=== PATIENT | female | born 1930 | race Caucasian/White ===

== ENCOUNTER → 2017-02-25 | Outpatient (CLI) | payer MEDICARE, MEDICAID ==
--- NOTE | 2017-02-25 15:27 | ST Modified Barium Swallow ---
Recommendation - Recommendations Recommendations: Recommend GI consult due to reduced UES opening. Soft diet and thin liquids recommended as well. Medical Diagnoses - Medical Diagnoses Medical Diagnosis Description & ICD-10 Code(s): dysphagia, unspecified R13.10 Other Medical Diagnoses/Co-Morbidities: per patient: arthritis, vertigo, low blood pressure, IBS ST Modified Barium Swallow - General Date: 02/25/17 Referring Physician: Dr. Olvin Kumar Risks/Precautions: Falls Reason for Referral: Feels foods "get stuck" - History History obtained from: Patient - Patient reports sensation of getting "choked" with foods, gradually getting worse. Currently medications are taken broken up, and meats are ground. No history of stroke or injury to head/neck area. -: Medical Medications: Pt unable to recall. Allergies: Sulfa, no food allergies - Functional Status Prior Functional Status: INDEPENDENT: feeding - Able to consume regular diet without difficulty. Current Functional Limitations: feeding - Ground meats, cut pills - Subjective Patient/caregiver goal(s): r/o struct. abnormality Cognitive-Linguistic Function: WNL Speech Intelligibility: WNL Current Nutritional Means: PO Current PO diet: Mechanical- ground - with thin liquids Current symptoms: Coughing, c/o Globus sensation Pain: Patient reports, 0/5 - Objective Assessment: Upright, Left Lateral - Food Trials Used Food trials used: Thin liquids, Pureed, Regular The patient: Was Able to Self Feed - Oral-Motor Skills Dentition: Full Laryngeal Function: clear voicing - Assessment Oral prep: Normal Labial closure: Adequate Leakage: None Mastication: Adequate Lingual Movement: Normal Oral stage: Age appropriate - Pharyngeal Stage Initiation of Pharyngeal Stage Reflex: Delayed Reflex Delay Time (Seconds): 3 - for puree and solid Decreased laryngeal elevation: No Reduced Velopharyngeal Closure: no reduced tongue-based retraction: Yes Pre-swallow pooling in valleculae: Moderate - with puree and regular Reduced epiglottic excursion: No Reduced pharyngeal peristalsis/contraction: No Multiple Swallows with: Ineffective Clearance Post-swallow residulas vallecular: Moderate Post-Swallow residuals in pyriforms: Moderate Post-Swallow Residuals: throughout pharynx Reduced Cricopharyngeal opening: Yes Pharyngeal Stage Comments: Pharyngeal residue present, however, this was due to reduced cricopharyngeal opening, causing food and liquid to remain in pharynx after multiple swallows. Severely reduced UES functioning. - Fall Risk Assessment Medications/Conditions that increase fall risks include: Antidepressants, sedatives, anti-arrhythmic, diuretic, benzodiazipenes, neuroleptics. BP regulation problems, cardiac problems, balance or gait deficits, neurological problems. Is patient considered at risk for falls: yes Fall Risk Actions Taken: No action needed - Behavioral Observations Mental Status: Alert & Oriented X3 - Treatment / Educational Needs: Treatment/Education Needs: Treatment consisted of patient education on the role of the Speech Pathologist. Patient's plan of care and golas were communicated as well as scheduling and attendance policies. Recommendations for initial home program were shared. Patient demonstrated understanding and verbalized agreement. - Impression/Summary Laryngeal Penetration: Yes, after swallow - on residue after the swallow due to reduced UES opening Tracheal Aspiration: no Patient presents with: Esophageal stage dysph. Risk of Aspiration: Mild Risk of nutritional compromise: Mild Risk due to: Reduced UES opening and poor movement of material into esophagus. Evaluation and Findings: Good basic oral and pharyngeal swallow functioning, however, large amounts of residue seen in pharynx due to reduced cricopharyngeal opening, and inability of food to move into esophagus. Consider GI consult to address esophageal stage deficits. 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 - - -: Thank you for the opportunity to work with this patient and his/her family. Should you have any questions about this patient's plan or progress, I can be reached at [phone]. Charge G Code? - - -: Yes ST F.L. Impairment Category - Rationale Based On Rationale Based On: Clin Find., Obj Measures - Swallowing Current G8996: CK 40-59% Impaired Goal G8997: CK 40-59% Impaired Discharge G8998: CK 40-59% Impaired
--- NOTE | 2017-03-02 09:07 | RADIOLOGY REPORT (SQ) ---
EXAM DESCRIPTION: CHERYLE SWALLOW COMPLETED DATE/TIME: 02/25/2017 9:12 am REASON FOR STUDY: DYSPHAGIA, UNSPECIFIED R13.10 DYSPHAGIA, UNSPECIFIED COMPARISON: None. TECHNIQUE: Videofluoroscopic swallowing examination was performed in conjunction with speech patholo gy. Videofluoroscopic imaging was obtained and reviewed and these are the findings: RADIATION DOSE: 2 minutes 31 seconds of fluoroscopy was used. 2 images saved to PACS. LIMITATIONS: None FINDINGS: The patient was brought into the fluoro room and placed upright on a modified barium swall ow chair. The patient was then given multiple consistencies mixed with barium to swallow under live fluoroscopic video guidance. According to the Speech Pathologist there was trace laryngeal penetrati on is identified. No aspiration seen. Moderate post swallow residual contrast seen within the gross cular and piriform sinuses most likely caused by a moderate cricopharyngeal hypertrophy. IMPRESSION: TRACE LARYNGEAL PENETRATION WITH THIN LIQUIDS. NO ASPIRATION SEEN. MODERATE CRICOPHARY NGEAL HYPERTROPHY.PLEASE SEE SPEECH PATHOLOGIST REPORT FOR OTHER FINDINGS AND RECOMMENDATIONS. COMMENT: Quality ID [id number]: Final reports for procedures using fluoroscopy that document radiation exp osure indices, or exposure time and number of fluorographic images (if radiation exposure indices are not available) TECHNICAL DOCUMENTATION: JOB ID: [id number] [employer]- All Rights Reserved
== END ==
LOC: RAD 08:21
PROVIDERS: ATTEND Specialist
DX: R13.10 Dysphagia, unspecified (principal)
CPT/HCPCS: 74230; 92611; G8996; G8997; G8998

== ENCOUNTER → 2017-03-26 | Outpatient (CLI) | payer MEDICARE, MEDICAID ==
--- NOTE | 2017-03-26 13:25 | RADIOLOGY REPORT (SQ) ---
EXAM DESCRIPTION: BARIUM SWALLOW ESOPHAGUS COMPLETED DATE/TIME: 03/26/2017 9:17 am REASON FOR STUDY: DYSPHAGIA R13.10 DYSPHAGIA, UNSPECIFIED COMPARISON: Cookie swallow 02/25/2017 TECHNIQUE: Under fluoroscopic guidance, patient ingested effervescent granules followed by thick and thin barium. Fluoroscopic spot images and routine radiographic images acquired and stored on PACS. 12 MM BARIUM TABLET GIVEN: Patient politely refused the 12 mm barium tablet LIMITATIONS: None. FLUOROSCOPY TIME: 1 minutes 57 seconds 10 series of digital images saved to PACS. FINDINGS: No laryngeal penetration on today's study with thick liquid barium. In the uppermost esophagus, a mild persistent stricture is present seen on multiple views, at about t he level of C7-T1. This could be a peptic related stricture. The the remainder of the esophagus demonstrates prominent tertiary contractions and mild diffuse dysm otility. There is a small hiatal hernia without Schatzki's ring. Throughout the study, unprovoked gastroesophageal reflux to the cervical esophagus is seen. IMPRESSION: Small hiatal hernia with gastroesophageal reflux. 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
== END ==
LOC: RAD 08:18
PROVIDERS: ATTEND Specialist
DX: R13.10 Dysphagia, unspecified (principal); K21.9 Gastro-esophageal reflux disease without esophagitis; K44.9 Diaphragmatic hernia without obstruction or gangrene
CPT/HCPCS: 74220

== ENCOUNTER → 2017-05-31 | Outpatient (CLI) | payer MEDICARE, MEDICAID ==
--- NOTE | 2017-05-31 12:32 | WOMENS IMAGING REPORT ---
EXAM DESCRIPTION: BONE DENSITY HIP/SPINE COMPLETED DATE/TIME: 05/31/2017 11:52 am REASON FOR STUDY: AGE-RELATED OSTEOPROSIS; M81.0 M81.0 AGE-RELATED OSTEOPOROSIS W/O CURRENT PATHOLO GICAL FRAC COMPARISON: None. TECHNIQUE: Dual-Energy X-ray Absorptiometry (DEXA) of the AP Spine and Hip. LIMITATIONS: None. FINDINGS: LUMBAR SPINE: The bone mineral density (BMD) measured from L1-L4 in the AP projection correlates with a T-score of -1.1, which is osteopenia as defined by the World Health Organization. HIP: The bone mineral density (BMD) measured in the left hip correlates with a T-score of -1.8, which is o steopenia as defined by the World Health Organization. IMPRESSION: 1. LUMBAR SPINE: OSTEOPENIA. 2. HIP: OSTEOPENIA. COMMENT: The World Health Organization defines low BMD as follows: T-score: Normal: Greater than -1.0 Osteopenia: Between -1.0 and -2.5 Osteoporosis: Less than -2.5 without fractures Established osteoporosis: Less than -2.5 with fractures In general, you may wish to consider: Diagnosis Treatment Follow-up DEXA Normal BMD Prevention 2-3 years Osteopenia Prevention/Therapy 1-2 years Osteoporosis Therapy Yearly TECHNICAL DOCUMENTATION: JOB ID: [id number] [employer]- All Rights Reserved
== END ==
LOC: WI 10:00
PROVIDERS: ATTEND Internal Medicine Rheumatology
DX: M81.0 Age-related osteoporosis without current pathological fracture (principal)
CPT/HCPCS: 77080

== ENCOUNTER 2017-09-19 17:52 | Emergency (ER) | payer MEDICARE, MEDICAID ==
[2017-09-19 18:23] LABS: ABSOLUTE BASOPHILS # (AUTO) 0.1 10^3/uL (0.0-0.2); ABSOLUTE LYMPHOCYTES (AUTO) 2.1 10^3/uL (0.5-4.7); ABSOLUTE MONOCYTES (AUTO) 0.7 10^3/uL (0.1-1.4); ABSOLUTE NEUT (AUTO) 14.6 10^3/uL (1.7-8.2); BASOPHILS % (AUTO) 0.5 % (0-2); EOSINOPHILS % (AUTO) 0.1 % (0-6); HEMATOCRIT 40.3 % (36.0-47.0); HEMOGLOBIN 13.2 g/dL (12.0-15.5); LYMPHOCYTES % (AUTO) 11.9 % (13-45); MEAN CORPUSCULAR HEMOGLOBIN 33.1 pg (27.0-33.4); MEAN CORPUSCULAR HGB CONC 32.8 g/dL (32.0-36.0); MEAN CORPUSCULAR VOLUME 101 fl (80-97); MONOCYTES % (AUTO) 4.2 % (3-13); PLATELET COUNT 317 10^3/uL (150-450); RED BLOOD COUNT 3.99 10^6/uL (3.72-5.28); RED CELL DISTRIBUTION WIDTH 14.1 % (11.5-14.0); SEGMENTED NEUTROPHILS % (AUTO) 83.3 % (42-78); TOTAL CELLS COUNTED % (AUTO) 100 %; WHITE BLOOD COUNT 17.6 10^3/uL (4.0-10.5)
[2017-09-19 18:40] LABS: ALANINE AMINOTRANSFERASE 27 U/L (9-52); ALBUMIN 3.7 g/dL (3.5-5.0); ALKALINE PHOSPHATASE 49 U/L (38-126); ANION GAP 6 (5-19); ASPARTATE AMINO TRANSFERASE 28 U/L (14-36); BILIRUBIN,DIRECT 0.4 mg/dL (0.0-0.4); BILIRUBIN,TOTAL 0.6 mg/dL (0.2-1.3); BLOOD UREA NITROGEN 18 mg/dL (7-20); CALCIUM 10.1 mg/dL (8.4-10.2); CARBON DIOXIDE 29 mmol/L (22-30); CHLORIDE 101 mmol/L (98-107); GLUCOSE 113 mg/dL (75-110); POTASSIUM 4.8 mmol/L (3.6-5.0); SODIUM 135.8 mmol/L (137-145); TOTAL PROTEIN 6.3 g/dL (6.3-8.2)
[2017-09-19 19:30] LABS: CREATINE KINASE 30 U/L (30-135)
--- NOTE | 2017-09-19 19:36 | RADIOLOGY REPORT (SQ) ---
EXAM DESCRIPTION: CHEST SINGLE VIEW COMPLETED DATE/TIME: 09/19/2017 7:16 pm REASON FOR STUDY: cough COMPARISON: 07/02/2013 NUMBER OF VIEWS: One view. TECHNIQUE: Single frontal radiographic view of the chest acquired. LIMITATIONS: None. FINDINGS: LUNGS AND PLEURA: No opacities, masses or pneumothorax. No pleural effusion. Attenuated bl ood vessels and flattened mitul-diaphragms. MEDIASTINUM AND HILAR STRUCTURES: No masses. Contour normal. HEART AND VASCULAR STRUCTURES: Heart normal in size. Normal vasculature. BONES: No acute findings. HARDWARE: None in the chest. OTHER: No other significant finding. IMPRESSION: COPD. NO ACUTE RADIOGRAPHIC FINDING IN THE CHEST. TECHNICAL DOCUMENTATION: JOB ID: [id number] [employer]- All Rights Reserved Reading location - IP/workstation name: [email or web address]
[2017-09-19 19:42] LABS: CREATINE KINASE MB 2.21 ng/mL (<4.55); NT PRO BNP 2280 pg/mL (<450)
[2017-09-19 19:46] LABS: TROPONIN I < 0.012 ng/mL
--- NOTE | 2017-09-19 20:18 | EKG REPORT ---
SEVERITY:- ABNORMAL ECG - SINUS RHYTHM WITH PACS. LEFT BUNDLE BRANCH BLOCK : Confirmed by: Vince Mckeon MD 19-Sep-2017 20:17:47
[2017-09-19] MEDS ORDERED: NORMAL SALINE 500 ML IV ONE (20:42)
--- NOTE | 2017-09-19 21:03 | ER Document Report ---
ED General - General Chief Complaint: Cough Stated Complaint: COUGH Time Seen by Provider: 09/19/17 18:52 Mode of Arrival: Ambulatory Information source: Patient TRAVEL OUTSIDE OF THE [place] IN LAST 30 DAYS: No - HPI Patient complains to provider of: cough/congestion/ear drainage b/l Onset: Other - last night Associated symptoms: Nonproductive cough. denies: Body/muscle aches, Chest pain , Chills, Productive cough, Diarrhea, Drooling, Earache, Fever, Headache, Hurts to breath, Leg swelling, Nausea, Vomiting, Shortness of breath, Sore throat Notes: Patient states that she had drainage from both her ears yesterday she denies any pain. She is here for cough as well as congestion.Daughter states she had chest discomfort today although patient denies it. Patient is DNR. She has a history of left bundle branch block. - Related Data Allergies/Adverse Reactions: Sulfa (Sulfonamide Antibiotics) Allergy (Mild, Verified 12/04/11 13:56) unknown reaction many yrs ago Past Medical History - General Information source: Patient, Relative, [facility] Records - Social History Smoking Status: Never Smoker Chew tobacco use (# tins/day): No Frequency of alcohol use: None Drug Abuse: None Family History: Reviewed & Not Pertinent Patient has suicidal ideation: No Patient has homicidal ideation: No - Past Medical History Cardiac Medical History: Reports: Hx Atrial Fibrillation - with RVR, Hx Congestive Heart Failure, Other - LBBB Denies: Hx Coronary Artery Disease, Hx Heart Attack, Hx Hypertension Pulmonary Medical History: Reports: None Denies: Hx Asthma, Hx Bronchitis, Hx COPD, Hx Pneumonia EENT Medical History: Reports: None Neurological Medical History: Reports: None. Denies: Hx Cerebrovascular Accident, Hx Seizures Endocrine Medical History: Reports: None Renal/ Medical History: Reports: None. Denies: Hx Peritoneal Dialysis Malignancy Medical History: Reports: None GI Medical History: Reports: None. Denies: Hx Hepatitis, Hx Hiatal Hernia, Hx Ulcer Musculoskeltal Medical History: Reports Hx Arthritis Psychiatric Medical History: Denies: Hx Depression Traumatic Medical History: Reports: None Infectious Medical History: Denies: Hx Hepatitis Past Surgical History: Reports: Hx Hysterectomy. Denies: Hx Mastectomy, Hx Open Heart Surgery, Hx Pacemaker - Immunizations Hx Diphtheria, Pertussis, Tetanus Vaccination: Yes Hx Pneumococcal Vaccination: 07/19/09 Review of Systems - Review of Systems Constitutional: No symptoms reported EENT: Ear discharge, Nose congestion, Other - hard of hearing (saeid states this has been ongoing for years) Cardiovascular: No symptoms reported Respiratory: Cough Gastrointestinal: No symptoms reported Genitourinary: No symptoms reported Female Genitourinary: No symptoms reported Musculoskeletal: No symptoms reported Skin: No symptoms reported Neurological/Psychological: No symptoms reported Physical Exam - Vital signs Vitals: Temp Pulse Resp BP Pulse Ox 97.7 F 104 H 18 146/70 H 96 09/19/17 18:04 09/19/17 18:04 09/19/17 18:04 09/19/17 18:04 09/19/17 18:04 - Notes Notes: PHYSICAL EXAMINATION: GENERAL: Well-appearing, well-nourished and in no acute distress. HEAD: Atraumatic, normocephalic. EYES: Pupils equal round and reactive to light, extraocular movements intact, conjunctiva are normal. ENT: Nares patent, oropharynx clear without exudates. Moist mucous membranes. TMs within normal limits. Mild cerumen in both external ear canals. No drainage noted. NECK: Normal range of motion, supple without lymphadenopathy LUNGS: Breath sounds clear to auscultation bilaterally and equal. No wheezes rales or rhonchi. HEART: Irregularly irregular ABDOMEN: Soft, nontender, nondistended abdomen. No guarding, no rebound. No masses appreciated. Female : deferred Musculoskeletal: Normal range of motion, no pitting or edema. No cyanosis. NEUROLOGICAL: Cranial nerves grossly intact. Normal speech. Normal sensory, motor exams PSYCH: Normal mood, normal affect. SKIN: Warm, Dry, normal turgor, no rashes or lesions noted. Course - Re-evaluation Re-evalutation: 09/19/17 21:06 Pt.'s heart rate is 94 irregular. Pt. with h/o afib and not anticoagulated due to fall risk. 09/19/17 22:46 heart rate 90. 09/19/17 22:46 Labs- All tests 24 hr 09/19/17 09/19/17 09/19/17 18:00 18:00 18:00 WBC 17.6 H RBC 3.99 Hgb 13.2 Hct 40.3 MCV 101 H MCH 33.1 MCHC 32.8 RDW 14.1 H Plt Count 317 Seg Neutrophils % 83.3 H Lymphocytes % 11.9 L Monocytes % 4.2 Eosinophils % 0.1 Basophils % 0.5 Absolute Neutrophils 14.6 H Absolute Lymphocytes 2.1 Absolute Monocytes 0.7 Absolute Eosinophils 0.0 Absolute Basophils 0.1 Sodium 135.8 L Potassium 4.8 Chloride 101 Carbon Dioxide 29 Anion Gap 6 BUN 18 Creatinine 0.64 Est GFR ( Amer) > 60 Est GFR (Non-Af Amer) > 60 Glucose 113 H Calcium 10.1 Total Bilirubin 0.6 Direct Bilirubin 0.4 Neonat Total Bilirubin Not Reportable Neonat Direct Bilirubin Not Reportable Neonat Indirect Bili Not Reportable AST 28 ALT 27 Alkaline Phosphatase 49 Creatine Kinase 30 CK-MB (CK-2) Troponin I NT-Pro-B Natriuret Pep Total Protein 6.3 Albumin 3.7 Urine Color Urine Appearance Urine pH Ur Specific [place] Urine Protein Urine Glucose (UA) Urine Ketones Urine Blood Urine Nitrite Urine Bilirubin Urine Urobilinogen Ur Leukocyte Esterase Urine RBC (Auto) Urine Ascorbic Acid 09/19/17 09/19/17 18:00 21:00 WBC RBC Hgb Hct MCV MCH MCHC RDW Plt Count Seg Neutrophils % Lymphocytes % Monocytes % Eosinophils % Basophils % Absolute Neutrophils Absolute Lymphocytes Absolute Monocytes Absolute Eosinophils Absolute Basophils Sodium Potassium Chloride Carbon Dioxide Anion Gap BUN Creatinine Est GFR ( Amer) Est GFR (Non-Af Amer) Glucose Calcium Total Bilirubin Direct Bilirubin Neonat Total Bilirubin Neonat Direct Bilirubin Neonat Indirect Bili AST ALT Alkaline Phosphatase Creatine Kinase CK-MB (CK-2) 2.21 Troponin I < 0.012 NT-Pro-B Natriuret Pep 2280 H Total Protein Albumin Urine Color STRAW Urine Appearance CLEAR Urine pH 7.0 Ur Specific [place] 1.006 Urine Protein NEGATIVE Urine Glucose (UA) NEGATIVE Urine Ketones NEGATIVE Urine Blood SMALL H Urine Nitrite NEGATIVE Urine Bilirubin NEGATIVE Urine Urobilinogen NEGATIVE Ur Leukocyte Esterase NEGATIVE Urine RBC (Auto) 2 Urine Ascorbic Acid NEGATIVE Chest X-Ray 09/19/17 18:00 IMPRESSION: COPD. NO ACUTE RADIOGRAPHIC FINDING IN THE CHEST. - Vital Signs Vital signs: Temp Pulse Resp BP Pulse Ox 97.7 F 104 H 19 146/70 H 93 09/19/17 18:04 09/19/17 18:04 09/19/17 22:00 09/19/17 18:04 09/19/17 22:00 - Laboratory Result Diagrams: 09/19/17 18:00 09/19/17 18:00 Laboratory results interpreted by me: 09/19/17 09/19/17 09/19/17 18:00 18:00 18:00 WBC 17.6 H MCV 101 H RDW 14.1 H Seg Neutrophils % 83.3 H Lymphocytes % 11.9 L Absolute Neutrophils 14.6 H Sodium 135.8 L Glucose 113 H NT-Pro-B Natriuret Pep 2280 H Urine Blood 09/19/17 21:00 WBC MCV RDW Seg Neutrophils % Lymphocytes % Absolute Neutrophils Sodium Glucose NT-Pro-B Natriuret Pep Urine Blood SMALL H - Diagnostic Test Radiology reviewed: Image reviewed, Reports reviewed - EKG Interpretation by Me Rhythm: A.Flutter, with a 2:1 Block [place]/QRS: LBBB Discharge - Discharge Clinical Impression: Atrial flutter by electrocardiogram, Leukocytosis Condition: Stable Disposition: HOME-SNF (ED ONLY) Additional Instructions: Follow up with your physician tomorrow for further care or return to the ED IMMEDIATELY if symptoms worsen or new concerns occur. If you cannot afford to follow up with your primary care physician a list of low cost clinics have been provided at the end of your discharge papers as well. Referrals: PIETRO ANN PA-C [Primary Care Provider] - Follow up in 3-5 days
[2017-09-19 21:22] LABS: APPEARANCE,URINE CLEAR; BILIRUBIN,URINE NEGATIVE (NEGATIVE); COLOR,URINE STRAW; GLUCOSE, URINE NEGATIVE (NEGATIVE); KETONES,URINE NEGATIVE (NEGATIVE); LEUKOCYTE ESTERASE,URINE NEGATIVE (NEGATIVE); NITRITE,URINE NEGATIVE (NEGATIVE); PROTEIN,URINE NEGATIVE (NEGATIVE); URINE SPECIFIC GRAVITY 1.006; UROBILINOGEN,URINE NEGATIVE mg/dL (<2.0)
[2017-09-19] MEDS ORDERED: METOPROLOL TARTRATE PF/INJ 5 MG/5 ML SDV IV ONE (22:09)
[2017-09-19] MEDS ORDERED: METOPROLOL TARTRATE 50 MG TABLET PO ONE (22:27)
[2017-09-19 22:50] VITALS: BP 139/63
== END 2017-09-19 23:30 ==
LOC: ER 17:52
DX: D72.829 Elevated white blood cell count, unspecified (principal); I48.92 Unspecified atrial flutter; R05 Cough; I48.91 Unspecified atrial fibrillation; Z88.2 Allergy status to sulfonamides; Z90.710 Acquired absence of both cervix and uterus
CPT/HCPCS: 93005; 99284; 96360; 51701; 36415; 82553; 82550; 85025; 80053; 81001; 84484; 83880; 71045; 93010; A9270; J7040

== ENCOUNTER 2017-11-29 15:49 | Emergency (ER) | payer MEDICARE, MEDICAID ==
--- NOTE | 2017-11-29 16:33 | RADIOLOGY REPORT (SQ) ---
EXAM DESCRIPTION: CT HEAD WITHOUT COMPLETED DATE/TIME: 11/29/2017 4:24 pm REASON FOR STUDY: hall3 s/p fall per dr carrasco COMPARISON: 2010. TECHNIQUE: Axial images acquired through the brain without intravenous contrast. Images reviewed wi th bone, brain and subdural windows. Images stored on PACS. All CT scanners at this facility use dose modulation, iterative reconstruction, and/or weight based d osing when appropriate to reduce radiation dose to as low as reasonably achievable (ALARA). [facility]: Dose Right [facility]: CareDose [facility]: Dose Right [facility]: Teradose 4D [facility]: [employer] RADIATION DOSE: mGy. LIMITATIONS: None. FINDINGS: VENTRICLES: Age-appropriate. CEREBRUM: Patchy deep periventricular low densities in the white matter. Consistent with small vesse l vasculopathy chronic appearance. CEREBELLUM: No masses. No hemorrhage. No alteration of density. No evidence for acute infarction. EXTRAAXIAL SPACES: Mild age-related involutional change. No fluid collections. No masses. ORBITS AND GLOBE: No intra- or extraconal masses. Normal contour of globe without masses. CALVARIUM: No fracture. PARANASAL SINUSES: No fluid or mucosal thickening. SOFT TISSUES: No mass or hematoma. OTHER: No other significant finding. IMPRESSION: Chronic intracranial changes. No acute abnormality. EVIDENCE OF ACUTE STROKE: NO. TECHNICAL DOCUMENTATION: JOB ID: [id number] Quality ID # [id number]: Final reports with documentation of one or more dose reduction techniques (e.g., Au tomated exposure control, adjustment of the mA and/or kV according to patient size, use of iterative reconstruction technique) 2010 [employer]- All Rights Reserved Reading location - IP/workstation name: [email or web address]
--- NOTE | 2017-11-29 18:21 | ER Document Report ---
ED General - General Chief Complaint: Fall Stated Complaint: FALL Time Seen by Provider: 11/29/17 17:16 Mode of Arrival: Stretcher Information source: Patient Notes: This is an 87-year-old female with a history of degenerative arthritis ( wheelchair bound for the past few months). Patient was getting up from using the toilet when she lost balance and fell and hit her head. She also states she twisted her right ankle and complains of pain and swelling to that joint. Patient should not denies loss of consciousness. She denies chest pain, abdominal pain. TRAVEL OUTSIDE OF THE [place] IN LAST 30 DAYS: No - HPI Onset: Just prior to arrival Onset/Duration: Sudden Quality of pain: Dull Severity: Moderate Pain Level: 2 Associated symptoms: denies: Chest pain, Fever, Shortness of breath Exacerbated by: Movement Relieved by: Denies Similar symptoms previously: No Recently seen / treated by doctor: No - Related Data Allergies/Adverse Reactions: Sulfa (Sulfonamide Antibiotics) Allergy (Mild, Verified 11/29/17 17:08) unknown reaction many yrs ago Past Medical History - General Information source: Patient - Social History Smoking Status: Unknown if Ever Smoked Cigarette use (# per day): No Chew tobacco use (# tins/day): No Frequency of alcohol use: None Drug Abuse: None Lives with: Retirement Family History: Reviewed & Not Pertinent Patient has suicidal ideation: No Patient has homicidal ideation: No - Past Medical History Cardiac Medical History: Reports: Hx Atrial Fibrillation - with RVR, Hx Congestive Heart Failure Denies: Hx Coronary Artery Disease, Hx Heart Attack, Hx Hypertension Pulmonary Medical History: Denies: Hx Asthma, Hx Bronchitis, Hx COPD, Hx Pneumonia Neurological Medical History: Denies: Hx Cerebrovascular Accident, Hx Seizures Renal/ Medical History: Denies: Hx Peritoneal Dialysis GI Medical History: Denies: Hx Hepatitis, Hx Hiatal Hernia, Hx Ulcer Musculoskeltal Medical History: Reports Hx Arthritis Psychiatric Medical History: Denies: Hx Depression Infectious Medical History: Denies: Hx Hepatitis Past Surgical History: Reports: Hx Hysterectomy. Denies: Hx Mastectomy, Hx Open Heart Surgery, Hx Pacemaker - Immunizations Hx Diphtheria, Pertussis, Tetanus Vaccination: Yes Hx Pneumococcal Vaccination: 07/19/09 Review of Systems - Review of Systems Constitutional: denies: Chills, Fever EENT: No symptoms reported Cardiovascular: No symptoms reported Respiratory: No symptoms reported Gastrointestinal: No symptoms reported Genitourinary: No symptoms reported Female Genitourinary: No symptoms reported Musculoskeletal: See HPI Skin: No symptoms reported Hematologic/Lymphatic: No symptoms reported Neurological/Psychological: No symptoms reported Physical Exam - Vital signs Notes: Physical exam: GENERAL: 87-year-old female, alert and answering questions. HEAD: The patient has swelling and tenderness with a superficial abrasion over the occipital scalp EYES: Pupils equal round and reactive to light, extraocular movements intact, sclera anicteric, conjunctiva are normal. ENT: TMs normal, nares patent, oropharynx clear without exudates. Moist mucous membranes. NECK: Normal range of motion, supple without obvious mass or tenderness to palpation. LUNGS: Breath sounds clear to auscultation bilaterally and equal. No wheezes rales or rhonchi. HEART: Regular rate and rhythm without murmurs, rubs or gallops. ABDOMEN: Soft, normoactive bowel sounds. No tenderness to palpation. No guarding, no rebound. No masses appreciated. EXTREMITIES: Patient has significant degenerative joint disease with deformities in both wrists upper extremity. She has swelling to the right lower extremity with old surgical scar over the right ankle. He does have some tenderness over the tibia. NEUROLOGICAL: Cranial nerves II through XII grossly intact. Normal speech, moving all extremities. PSYCH: Normal mood, normal affect. SKIN: Warm, Dry, normal turgor, no rashes or lesions noted. Course - Diagnostic Test Radiology reviewed: Image reviewed, Reports reviewed - CT of the head shows no fracture. CT of the cervical spine shows no fracture. X-rays of the right lower extremity show no definitive fracture with intact hardware. Discharge - Discharge Clinical Impression: Contusion head, Sprain right ankle Condition: Stable Disposition: HOME, SELF-CARE Additional Instructions: As we discussed the CAT scan of your head and cervical spine look good. There is no bleed, fracture or malalignment. As far as the x-rays of the right lower extremity: The hardware in place is intact from the old fracture. There is some arthritis in the area which is to be expected. We do not see a definite fracture in that area. So his splint was placed and you can take the splint off if it is uncomfortable, but this is to offer support if you stand. Recommend following up with an orthopedic doctor in 2 weeks at which time a repeat x-ray can be done. Continue current medicines. Keep the leg elevated at night. Tylenol/ibuprofen for pain Return to the ER for worsening pain or concerns or getting worse. Referrals: PIETRO ANN PA-C [Primary Care Provider] - 11/30/17 HARRISON BUSH MD [ACTIVE STAFF] - Follow up as needed (This is the number the orthopedic surgeon: Follow-up in 2 weeks)
--- NOTE | 2017-11-29 18:25 | RADIOLOGY REPORT (SQ) ---
EXAM DESCRIPTION: TIBIA FIBULA RIGHT COMPLETED DATE/TIME: 11/29/2017 6:05 pm REASON FOR STUDY: RLE deformity s/p fall COMPARISON: Right ankle films 10/21/2009, 11/29/2017 Old fluoroscopy ORIF right ankle images 10/21/2009, 06/12/2008 NUMBER OF VIEWS: Two views. TECHNIQUE: Two radiographic images acquired of the right tibia and fibula to include the knee and an kle in at least one projection. LIMITATIONS: None. FINDINGS: MINERALIZATION: Osteopenic BONES: Patient has old hardware along the distal fibula and lateral malleolus unchanged from 2007. T here is bony remodeling along the proximal aspect of the fibular fixation plate with bony callus surr ounding the proximal 2 screws and proximal plate. This is new compared to studies from 2009 and is l ikely related to fracture seen at the proximal edge of the fibular plate on 10/21/2009 There are 2 lag screws along the medial malleolus, unchanged from 10/21/2009. An old healed distal rig ht fibular metaphysis fracture with bony remodeling is present. No definite acute fracture of the distal tibia or fibula is seen by plain film today. SOFT TISSUES: No obvious swelling or foreign body. OTHER: No other significant finding. IMPRESSION: Remote prior ORIF of a bimalleolar fracture with re- fracture in 2009 around the hardwar e. On the current study, no definite acute fracture is identified TECHNICAL DOCUMENTATION: JOB ID: [id number] [employer]- All Rights Reserved Reading location - IP/workstation name: [email or web address]
--- NOTE | 2017-11-29 18:32 | RADIOLOGY REPORT (SQ) ---
EXAM DESCRIPTION: ANKLE RIGHT COMPLETE COMPLETED DATE/TIME: 11/29/2017 6:05 pm REASON FOR STUDY: rle deformity s/p fall COMPARISON: 06/12/2008 right ankle films 10/21/2009 right ankle films NUMBER OF VIEWS: Three views. TECHNIQUE: AP, lateral, and oblique radiographic images acquired of the right ankle. LIMITATIONS: None. FINDINGS: MINERALIZATION: Osteopenic BONES: Remote prior ORIF of a bimalleolar fracture with re- fracture in 2009 around the hardware. On the current study, no definite acute fracture is identified. Current study demonstrates old healed distal fibular diaphysis and distal right tibial metaphysis fractures with bony bridging callus. There is also bony bridging across the distal intra osseous ligament, chronic in appearance. No acute fracture is identified. This finding was discussed with Dr. Chino. No lucency around the hardware worrisome for loosening. JOINTS: No effusions. SOFT TISSUES: Mild lateral malleolar soft tissue swelling. No foreign body. OTHER: No other significant finding. IMPRESSION: Remote prior ORIF of a bimalleolar fracture with re- fracture in 2009 around the hardwar e. On the current study, no definite acute fracture is identified. If there is continued pain clini sara worrisome for fracture, repeat plain films in 10 days could be useful for further evaluation. Findings discussed with the emergency room attending physician. TECHNICAL DOCUMENTATION: JOB ID: [id number] [employer]- All Rights Reserved Reading location - IP/workstation name: [email or web address]
--- NOTE | 2017-11-29 18:49 | RADIOLOGY REPORT (SQ) ---
EXAM DESCRIPTION: CT CERVICAL SPINE WITHOUT COMPLETED DATE/TIME: 11/29/2017 6:22 pm REASON FOR STUDY: s/p fall COMPARISON: None. TECHNIQUE: Axial images acquired through the cervical spine without intravenous contrast. Images re viewed with lung, soft tissue and bone windows. Reconstructed coronal and sagittal MPR images review ed. Images stored on PACS. All CT scanners at this facility use dose modulation, iterative reconstruction, and/or weight based d osing when appropriate to reduce radiation dose to as low as reasonably achievable (ALARA). [facility]: Dose Right [facility]: CareDose [facility]: Dose Right [facility]: Teradose 4D [facility]: Smart Pose RADIATION DOSE: mGy. LIMITATIONS: Some motion artifact. FINDINGS: ALIGNMENT: Minimal anterolisthesis C2-C3. Arthritic change facet joints. No obvious frac ture. Findings accentuated by slight motion. MINERALIZATION: Diffuse demineralization. VERTEBRAL BODIES: No acute fractures identified. DISCS: Multilevel disc space narrowing with osteophytes. FACETS, LATERAL MASSES, POSTERIOR ELEMENTS: Facet arthropathy. No fractures. No dislocation. No ac tangirnaq findings. HARDWARE: None in the spine. VISUALIZED RIBS: No fractures. LUNG APICES AND SOFT TISSUES: No significant or acute findings. OTHER: Areas of spinal stenosis are noted. Arterial calcification. IMPRESSION: Cervical spondylosis. No acute fracture identified. Minor anterolisthesis C2 on C3 with arthritic change. Findings accentuated of motion artifact. TECHNICAL DOCUMENTATION: JOB ID: [id number] Quality ID # [id number]: Final reports with documentation of one or more dose reduction techniques (e.g., Au tomated exposure control, adjustment of the mA and/or kV according to patient size, use of iterative reconstruction technique) 2010 [employer]- All Rights Reserved Reading location - IP/workstation name: [email or web address]
[2017-11-29 21:00] VITALS: BP 144/71
== END 2017-11-29 21:00 | disposition home or self-care (01) ==
LOC: ER 15:49
DX: S93.401A Sprain of unspecified ligament of right ankle, initial encounter (principal); S00.93XA Contusion of unspecified part of head, initial encounter; M25.571 Pain in right ankle and joints of right foot; W18.39XA Other fall on same level, initial encounter; Y93.89 Activity, other specified; M47.9 Spondylosis, unspecified; M19.032 Primary osteoarthritis, left wrist; M19.031 Primary osteoarthritis, right wrist; Z99.3 Dependence on wheelchair; Z88.2 Allergy status to sulfonamides
CPT/HCPCS: 99284; 73610; 73590; 70450; 72125; L4350

== ENCOUNTER → 2019-06-08 | Outpatient (CLI) | payer MEDICARE, MEDICAID ==
--- NOTE | 2019-06-08 16:40 | RADIOLOGY REPORT (SQ) ---
EXAM DESCRIPTION: ARTERIAL LOWER EXTREM UNILAT COMPLETED DATE/TIME: 06/08/2019 3:19 pm REASON FOR STUDY: PVD I73.9 PERIPHERAL VASCULAR DISEASE, UNSPECIFIED COMPARISON: None. TECHNIQUE: Dynamic and static jane scale and color images acquired of the right lower extremity mode helga. Additional selected spectral images recorded. LIMITATIONS: None. FINDINGS: RIGHT LEG: INFLOW ARTERIES: Normal, no obstruction evident. Multiphasic waveforms. FEMORAL ARTERIES:Multiphasic waveforms. Normal, no velocity elevation to suggest focal stenosis. Norm al color Doppler evaluation. No aneurysm. POPLITEAL ARTERY:No aneurysm. Monophasic waveforms are present. No focal elevated velocities worriso me for stenosis in the popliteal artery PATENT TIBIOPERONEAL TRUNK AND 3 VESSEL RUNOFF: Diffusely diseased anterior tibial artery is patent t hroughout the calf, providing monophasic inflow into the dorsalis pedis. Proximal 2/3 of the peronea l artery and posterior tibial artery are patent. Distal thirds of both of these vessels are occluded . LEFT LEG: Comparison left dorsalis pedis images demonstrate multiphasic waveforms IMPRESSION: Right lower extremity 1 vessel runoff to the foot via anterior tibial artery. COMMENT: [facility] NORMAL: Greater than 1.0 MINIMAL DISEASE: 0.9 to 1.0 CLAUDICATION: 0.5 to 0.9 SEVERE ARTERIAL DISEASE: Less than 0.5 [facility] NORMAL: Greater than 1.0 (1.2 If Heavy Calcifications) NORMAL TO MILD ISCHEMIA: 0.8 to 1.0 MODERATE ISCHEMIA: 0.4 to 0.8 SEVERE ISCHEMIA: Less than 0.4 TECHNICAL DOCUMENTATION: JOB ID: [id number] [employer]- All Rights Reserved Reading location - IP/workstation name: [email or web address]
== END ==
LOC: SP 10:42
PROVIDERS: ATTEND Surgery
DX: I96 Gangrene, not elsewhere classified (principal)
CPT/HCPCS: 93926